=== PATIENT | female | born 1985 | race Caucasian/White ===

== ENCOUNTER 2016-10-26 13:44 | Emergency (ER) | payer OTHER ==
[~2016-10-26] VITALS: Ht 167.6 cm; Wt 77.7 kg
[~2016-10-26 13:44] MED LIST: BACTRIM DS1 TAB PO; PENICILLN VK500 MG PO; TRAMADOL HYDROC50 MG PO
[2016-10-26 15:08] LABS: HEMATOCRIT 39.6 % (37.0-47.0); HEMOGLOBIN 13.1 g/dl (12.0-16.0); IMMATURE GRANULOCYTES 0.3 % (0.0-1.0); MEAN CELL VOLUME 91.9 fL CALC (80.0-100.0); MEAN CORPUSCULAR HGB 30.4 pG CALC (26.0-32.0); MEAN CORPUSCULAR HGB CONC 33.1 g/L CALC (32.0-36.0); NEUT# 4.13 thou/uL (2.00-7.15); RED BLOOD COUNT 4.31 mill/uL (4.20-5.60); RED CELL DISTRI WIDTH 12.1 % (11.5-15.5)
[2016-10-26 15:28] LABS: ALBUMIN 4.3 g/dL (3.2-5.0); ALKALINE PHOSPHATASE 86 u/l (38-126); ANION GAP 15 (6-22 (CALC)); BILIRUBIN, TOTAL 0.8 mg/dL (0.0-1.4); BUN 9 mg/dL (7-17); BUN/CREATININE RATIO 12 (12-20 (CALC)); CARBON DIOXIDE 25 mmol/l (22-30); CHLORIDE 104 mmol/l (95-108); CREATININE 0.8 mg/dL (0.5-1.0); GFR > 60 ML/MIN (>=60 (CALC)); GFR FOR AFR.AMER. > 60 ML/MIN (>=60 (CALC)); GLUCOSE 80 mg/dL (65-105); SGOT/AST 23 u/l (14-36); SGPT/ALT 26 u/l (9-52); SODIUM 140 mmol/l (137-146); TOTAL PROTEIN 7.8 g/dL (6.3-8.2)
[2016-10-26 16:13] LABS: URINE BILIRUBIN - DIPSTICK NEGATIVE (NEGATIVE); URINE BLOOD DIPSTICK NEGATIVE (NEGATIVE); URINE CLARITY CLEAR; URINE COLOR YELLOW; URINE GLUCOSE - DIPSTICK NEGATIVE (NEGATIVE); URINE KETONE NEGATIVE (NEGATIVE); URINE LEUK ESTERASE NEGATIVE (NEGATIVE); URINE NITRITE - DIPSTICK NEGATIVE (Negative); URINE PH 5.5 (4.5-8.0); URINE PROTEIN - DIPSTICK NEGATIVE (NEG-TRACE); URINE SPECIFIC GRAVITY <=1.005; URINE UROBILINOGEN - DIPSTICK 0.2 E.U./dL (0.2)
[2016-10-26] MEDS ORDERED: ANTIVERT PO (16:28)
[2016-10-26] MEDS ORDERED: FIORICET PO (16:28)
[2016-10-26 16:31] VITALS: BP 119/75
== END 2016-10-26 16:32 | disposition home or self-care (01) | DRG 149 ==
LOC: ED 13:44
PROVIDERS: Emergency Medicine
DX: R42 Dizziness and giddiness (principal); R51 Headache; R11.0 Nausea

== ENCOUNTER 2022-04-04 17:09 | Emergency (ER) | payer OTHER ==
[~2022-04-04] VITALS: Ht 167.6 cm; Wt 77.0 kg
[~2022-04-04 17:09] MED LIST changes: +ANTIVERT PO; +FIORICET PO
[2022-04-04 18:37] VITALS: BP 146/70
[2022-04-04] MEDS ORDERED: LEVOCETIRIZINE D5 MG PO (19:29)
[2022-04-04] MEDS ORDERED: MEDDOSEPAK PO (19:29)
[2022-04-04] MEDS ORDERED: TESSALON PERLE100 MG PO (19:30)
[2022-04-04 19:40] VITALS: BP 146/70
== END 2022-04-04 19:44 | disposition home or self-care (01) ==
LOC: ED 17:09
DX: R05.9 Cough, unspecified (principal); Z20.822 Contact with and (suspected) exposure to COVID-19

== ENCOUNTER 2024-08-09 17:42 | Emergency (ER) | payer SELFPAY ==
[~2024-08-09] VITALS: Ht 167.6 cm; Wt 65.7 kg
[~2024-08-09 17:42] MED LIST changes: +LEVOCETIRIZINE D5 MG PO; +MEDDOSEPAK PO; +PERCOCET 5/321 COMBO PO; +TESSALON PERLE100 MG PO
[2024-08-09 17:48] VITALS: BP 141/78
[2024-08-09 18:00] VITALS: BP 116/80
[2024-08-09 18:15] VITALS: BP 114/74
[2024-08-09 18:30] VITALS: BP 112/70
[2024-08-09] MEDS ORDERED: EC-NAPROXEN500 MG PO ×2 (18:39→18:52)
[2024-08-09 18:45] VITALS: BP 114/70
== END 2024-08-09 18:45 | disposition home or self-care (01) | DRG 556 ==
LOC: ED 17:42
DX: M79.672 Pain in left foot (principal); J45.909 Unspecified asthma, uncomplicated